=== PATIENT | female | born 1960 | race Caucasian/White ===

== ENCOUNTER 2020-11-17 07:39 | Inpatient (IN) ==
--- NOTE | 2020-11-03 10:54 | History & Physical Report ---
Date of Service November 03, 2020 date of surgery: 11/17/20 Procedure: Right Total Knee Arthroplasty Assessment & Plan (1) Arthritis of right knee: Risks and benefits of procedure discussed in detail today, patient would like to proceed with a Right total knee replacement at [facility] as scheduled. will obtain medical clearance from Dr Schmitz prior to surgery as well as obtain PATs at [facility]. Will place on ASA 81mg po bid x 1 month post op, f/u 2 weeks post op for routine post-operative care and x-ray, sooner if having any problems. will make arrangements for OPPT at [facility] in [place] at the time of discharge. At this point in time, has failed conservative measures a nd would like to proceed with surgical intervention. The risks and benefits have been discussed including, but not limited to, risk of infection, nerve injury, stiffness, loss of motion, failure to improve, etc. Reasonable outcomes and options of treatment were discussed. An explanation of appropriate alternatives to the procedure that may be advantageous were discussed and their risks and benefits, as well as the risks and benefits of not proceeding with treatment. I offered to answer any additional inquiries concerning the treatment involved. All the patient's questions were answered. The patient is agreeable, understanding of the treatment plan and alternatives, and wishes to proceed with the treatment plan. History of Present Illness Chief Complaint: Right knee pain Primary Care Provider: ALBINA PCP Nathalia is a 60 year old female who complains of Right knee pain, presents for pre-op evaluation prior to a right total knee replacement by dr Jerez at [facility]. She complains of pain, decreased range of motion and stiffness in her right knee. currently the patient states that the symptoms are moderate-severe and rated at 6/10. The pain is described as aching, sharp and throbbing. her symptoms are aggravated by ascending stairs, daily activities, first steps while awake walking. Prior NSAIDs include Diclofenac and IBU. she has been treated with previous cortisone and visco injections in the past without much relief. Allergies Allergy/AdvReac Type Severity Reaction Status Date / Time Sulfa (Sulfonamide Allergy Unknown Rash Verified 09/13/20 13:15 Antibiotics) Home Medications Medication Instructions Recorded Confirmed Type amlodipine 2.5 mg PO QAM 09/01/20 09/01/20 History calcium carbonate-vitamin D3 1 tab PO BID 09/01/20 09/01/20 History [Calcium + D] diclofenac sodium 75 mg PO BID 09/01/20 09/01/20 History lisinopril-hydrochlorothiazide 1 tab PO BID 09/01/20 09/01/20 History pantoprazole [Protonix] 40 mg PO QAM 09/01/20 09/01/20 History Past Med/Surg History Medical History DJD (degenerative joint disease) of knee Hypertension NSAID long-term use Taking PPI preventatively d/t NSAID use Obesity Surgical History H/O foot surgery Right foot reconstruction H/O vaginal hysterectomy History of bladder surgery Bladder tack History of section x1 History of colonoscopy History of total left knee replacement Family History Father Family history of reaction to anesthesia shaking after some surgeries, not all of his surgeries. will happen with MAC and general anesthesia both. unsure as to why. 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: No Beliefs That Will Affect Care: None Current Living Situation: Spouse and Family Current Living Situation Comment: & son Feels Safe at Home: Yes Assistive Devices: Glasses Review of Systems Review of Systems: All systems reviewed & are unremarkable except as noted in HPI & below Constitutional: no fever, no chills and no sweats Respiratory: no cough and no dyspnea Cardiovascular: no chest pain, no dyspnea and no orthopnea Gastrointestinal: no abdominal pain, no nausea and no vomiting Musculoskeletal: as per Subjective / HPI Physical Exam Physical Exam: HT: 6'1" WT: 175lb BP: 126/72 Constitutional: WD/WN, vitals as above no acute distress Respiratory: normal respiratory effort, lungs clear to auscultation no respiratory distress, no labored breathing and does not use accessory muscles Cardiovascular: RRR, no murmur, no edema Gastrointestinal (Abdomen): normal bowel sounds, soft, nontender, no hepatosplenomegaly Musculoskeletal: Knee: + knee abnormal to inspection (RIGHT KNEE- ), + effusion (+1 effusion), + limited ROM of knee (ROM 0/3/110), + knee ROM with crepitation, + joint line tenderness (medial joint line) and + Caren's sign positive; no deformity, no skin erythema, no ecchymosis, no valgus laxity, no varus laxity, anterior drawer test negative, Naseem's sign negative and pivot shift test negative Results & Data Results & Data ([facility] [place]) Diagnostic Findings Right Knee X-ray 02-23-20 showing advanced degenerative changes to the right knee, narrowing of the medial compartment and patello-femoral joint with patellar spurring noted, findings showing joint space narrowing of the medial compartment and patello-femoral joint, osteophyte formation and subchondral sclerosis noted. overall varus alignment. no acute bony pathology noted.
--- NOTE | 2020-11-10 15:24 | Anesthesiology Consultation ---
Date of Service November 10, 2020 Assessment & Plan (1) Encounter for pre-operative examination: - COVID screening: Per PAT medical records assistant on 11/09: Travel screen negative, no known COVID-19 positive contacts or current COVID-19 related symptoms. Surgeon arranging preop COVID testing. Awaiting results. - Check BSG AM DOS Chart Review Chart Review: Acceptable Risk for Surgery and Patient NOT seen in Pre Admission Testing History Surgery Operation Date: 11/17/20 12:35 Proposed Procedures p Right Total Knee Arthroplasty - Scott Jerez DO Height/Weight Height: 5 ft 1 in Weight: 82.1 kg Allergies Allergy/AdvReac Type Severity Reaction Status Date / Time Sulfa (Sulfonamide Allergy Unknown Rash Verified 11/09/20 15:44 Antibiotics) Medications Home Medications Medication Instructions Recorded Confirmed Last Taken amlodipine 2.5 mg tablet 2.5 mg PO QAM 09/01/20 11/09/20 Unknown calcium carbonate 600 mg (1,500 1 tab PO BID 09/01/20 11/09/20 Unknown mg)-vitamin D3 200 unit tablet diclofenac sodium 75 mg 75 mg PO BID 09/01/20 11/09/20 Unknown tablet,delayed release lisinopril 20 1 tab PO BID 09/01/20 11/09/20 Unknown mg-hydrochlorothiazide 12.5 mg tablet pantoprazole 40 mg tablet,delayed 40 mg PO QAM 09/01/20 11/09/20 Unknown release (Protonix) ibuprofen 200 mg tablet 800 mg PO Q6H PRN 11/09/20 11/09/20 Unknown lorazepam 1 mg tablet (Ativan) 0.5 - 1 mg PO DAILY PRN 11/09/20 11/09/20 Unknown potassium chloride 20 mEq 20 meq PO QAM 11/09/20 11/09/20 Unknown tablet,extended release semaglutide (Ozempic) 0.5 mg SUBCUT WK 11/09/20 11/09/20 Unknown Past Medical History Medical History Anxiety Cardiac murmur "As child" > no murmur noted at PAT evaluation 09/13/20 Diabetes mellitus, type 2 DJD (degenerative joint disease) of knee Hypertension NSAID long-term use Taking PPI preventatively d/t NSAID use Obesity Past Family History Family History Father Family history of reaction to anesthesia shaking after some surgeries, not all of his surgeries. will happen with MAC and general anesthesia both. unsure as to why. Brother Family history of diabetes mellitus Brother Family history of diabetes mellitus Brother Family history of diabetes mellitus Mother Family history of diabetes mellitus Past Surgical History Surgical History H/O foot surgery Right foot reconstruction H/O vaginal hysterectomy History of bladder surgery Bladder tack History of section x1 History of colonoscopy History of total left knee replacement Social History Smoking Status: Never smoker Do You Dip or Chew Tobacco: No Hx Alcohol Use: No Hx Substance Use: No substance use type: does not use Lab Results Anesthesia Preop Results Results Anesthesia Widget: WBC 5.26 K/uL (4.8-10.8) 10/28/20 Hgb 14.4 g/dL (12.0-16.0) 10/28/20 Hct 43.4 % (37-47) 10/28/20 Plt 256 K/uL (130-400) 10/28/20 Na 140 mmol/L (136-145) 11/02/20 K 3.8 mmol/L (3.5-5.1) 11/02/20 Cl 106 mmol/L (98-107) 11/02/20 CO2 26 mmol/L (21-32) 11/02/20 BUN 35 mg/dl (7-18) H 11/02/20 Creat 0.96 mg/dl (0.6-1.2) 11/02/20 Glucose Level 115 mg/dl (70-99) H 11/02/20 PT 10.3 Seconds (9.0-12.0) 10/28/20 PTT 21.5 Seconds (21.0-31.0) 10/28/20 INR 1.0 (0.9-1.1) 10/28/20 HA1c 7.8 % (4.5-5.6) H 10/28/20 Urine Color Yellow 10/28/20 Urine Appearance Clear (Clear) 10/28/20 Urine pH 6.0 (4.5-7.5) 10/28/20 Urine Specific Warren 1.020 (1.000-1.030) 10/28/20 Urine Protein Negative (Negative) 10/28/20 Urine Glucose (UA) Negative (Negative) 10/28/20 Urine Ketones 1+ (Negative) H 10/28/20 Urine Blood Negative (Negative) 10/28/20 Urine Nitrite Negative (Negative) 10/28/20 Urine Bilirubin Negative (Negative) 10/28/20 Urine Urobilinogen Negative (Negative) 10/28/20 Urine Leukocyte Esterase Negative (Negative) 10/28/20 Blood Type A Positive 09/13/20 Antibody Screen NEGATIVE 09/13/20 Lab Comments: A1C improved from 09/13/20 labs- at that time A1C was 8.9% and new diabetes diagnosis > since started on Ozempic weekly injections with improvement to A1C at 7.8% on 10/28/20 labs* Testing Electrocardiogram Date: 10/28/20 SB with sinus arrhythmia at 57bpm. Otherwise normal ECG. Chest X-Ray Date: 09/13/20 Findings: + NAD
[~2020-11-17 07:39] MED LIST: ACETAMINOPHEN 500 MG TAB PO SCH; BUPIVACAINE 0.25% 30 ML VIAL ONE; BUPIVACAINE 0.5 % 5 MG/1 ML PF 10ML VIAL ONE; DEXAMETHASONE SOD INJ 4 MG/ML VIAL ONE; EPINEPHrine INJ 1 MG/ML AMP ONE; FAMOTIDINE 20 MG TAB PO SCH; GABAPENTIN 600 MG DOSE PO SCH; LR 500ML BOLUS, THEN 15ML/HR IV SCH; ROPIVACAINE 0.5% HCL/PF 150 MG, BUPIVACAINE 0.75% MPF 20 ML, EPINEPHrine 30MG/30ML (OR ... INSTIL SCH; Scopolamine 1 MG TDSY TD SCH; TRANEXAMIC ACID 1,000 MG **IV Intra-op IV SCH; ceFAZolin 2000MG 2,000 MG/15 ML SYR IV SCH; dexAMETHasone 4 MG TAB PO SCH
--- NOTE | 2020-11-17 08:33 | History & Physical Bridge Note ---
Date of Service November 17, 2020 History & Physical Bridge Note I have examined the patient, reviewed the History & Physical and in the interval since the performance of the History & Physical I have noted the following changes of clinical significance: no changes noted
[2020-11-17] MEDS ORDERED: fentaNYL citrate 100 MCG/2 ML VIAL ONE (08:58)
[2020-11-17] MEDS ORDERED: PROPOFOL IV EMULSION 10 MG/ML 20 ML VIAL IV ONE ×2 (08:58→11:08)
[2020-11-17] MEDS ORDERED: ePHEDrine sulfate 50 MG/ML SYR ONE (08:58)
[2020-11-17] MEDS ORDERED: LIDOCAINE 2% 2 ML VIAL/AMP(20MG/ML) INFIL ONE (08:58)
[2020-11-17] MEDS ORDERED: PHENYLEPHRINE 100MCG/ML 5ML SYR ONE (08:58)
[2020-11-17] MEDS ORDERED: MIDAZOLAM HCL 1 MG/ML 2ML VIAL ONE (08:58)
[2020-11-17] MEDS ORDERED: ePHEDrine sulfate 50 MG/ML AMP IV PRN (10:18)
[2020-11-17] MEDS ORDERED: ATROPINE SULFATE 0.1 MG/ML 10ML SYR IV PRN (10:18)
[2020-11-17] MEDS ORDERED: ONDANSETRON INJ 2 MG/ML 2 ML VIAL IV PRN ×2 (10:18→14:31)
[2020-11-17] MEDS ORDERED: fentaNYL citrate 100 MCG/2 ML VIAL IV PRN (10:18)
[2020-11-17] MEDS ORDERED: ORTHO JOINT ANESTHETIC ONE (10:25)
[2020-11-17] MEDS ORDERED: TRANEXAMIC ACID / 0.7% NACL 1000MG/100ML BAG IV ONE (10:54)
--- NOTE | 2020-11-17 11:52 | Operative Report ---
Post Operative Report Pre & Post Diagnosis Operation Date: 11/17/20 10:35 Pre-Op Diagnosis: Right Knee Arthritis Post-Op Diagnosis: Right Knee Arthritis I identified the patient and participated in the time-out.: Yes Procedure Operation Date: 11/17/20 10:35 Actual Procedures p Right Total Knee Arthroplasty(Right) utilizing [employer] journey 2 patient matched total knee arthroplasty for more femur to tibia 15 polytwenty 9 oval patella- Scott Jerez DO Surgeon Scott Jerez DO General Accounting Clerk Niranjan MATT Estimated Blood Loss 5 Findings Consistent with Post-Op Diagnosis Patient presents with severe end-stage DJD right knee [id number] varus alignment subchondral sclerosis marginal osteophytes moderate to large effusion Specimens Bone and cartilage Drains Medium bore Hemovac Anesthesia Type MAC Spinal Regional Complications none Disposition Accompanied Patient To Recovery: Yes Disposition: Recovery Room Indications Patient resents with severe end-stage DJD failed attempted conservative management with physical therapy anti-inflammatories relative rest activity modification corticosteroid injection viscosupplementation above intraoperative findings were noted Description of Procedure After proper prepping and draping of the Right lower extremity anterior midline incision was made over the region of the extensor extensor mechanism after meticulous hemostasis was obtained and maintained in subcutaneous tissues a medial parapatellar incision was made The patella was subluxed lateralward the medial lateral gutter were cleaned from any hypertrophic synovitis and scar tissue of the distal femoral block was placed and the distal femoral osteotomy cut was made subsequently the chamfers anterior and posterior osteotomy cuts were made utilizing the 4-in-1 block the tibia was subsequently subluxed anteriorward medial and ateral meniscal remnants were excised in their entirety remnants of the anterior and posterior cruciate ligaments were excised in their entirety excellent exposure of the proximal tibia was obtained the tibial osteotomy guide was placed on the proximal tibial osteotomy cut was made once again the knee was irrigated with copious amounts of sterile saline solution the patella was subsequently everted lateralward thickened scar tissue around the patella was removed the patella was subsequently cut utilizing a freehand technique and was drilled prepared for final preparation and placement of patella socially flexion-extension gaps were checked and the equal and symmetric trials were placed to the appropriate femoral and tibial trials with poly-spacer being placed for equal flexion and extension gaps and full range of motion including extension to 0 and flexion to 140 the trial components after having been taken to recovery range of motion was subsequently removed meticulous hemostasis was obtained and maintained subsequently a knee block injection of joint cocktail including ropivacaine 0.5% 150 mg. Bupivacaine 0.5% epinephrine 1-200,030 mL's toradol 30 mg dexamethasone 4 mg ketamine 10 mg clonidine 100 micrograms normal saline solution 30 mg was infiltrated into the soft tissues of the posterior knee medial lateral gutters and periosteal synovium special attention was paid to protect neurovascular structures at all times subsequently trial components having been removed the knee was irrigated with sterile saline solution. debris was removed the proximal tibia was subsequently prepared and was made ready for the placement of the tibial component tibial component was also cemented and tamped into position the femoral component was subsequently placed and cemented in the position the patellar component was subsequently cemented in position because hemostasis once again obtained and maintained wound having been thoroughly irrigated with debridement and debridement lavage was performed as well as a medial parapatellar incision closed with #1 Vicryl in interrupted fashion subcutaneous was closed with #2 Vicryl skin was closed with skin clips. PA-C was necessary for prepping and drapping as well as wound closure of deep fascia Sub cutaneous tissue and skin and was necessary for the case. A sterile compressive dressing was placed patient was taken to recovery in stable condition of report dictated by Solitario I attest to the content of the Intraoperative Record and any orders documented therein. Any exceptions are noted below. I attest to the content of the Intraoperative Record and any orders documented therein. Any exceptions are noted below.
--- NOTE | 2020-11-17 13:41 | XRay Report ---
XR knee RT 1 or 2V routine CLINICAL HISTORY: Postoperative evaluation. COMPARISON: None FINDINGS: Alignment of the total right knee arthroplasty is anatomic. There is no periprosthetic fra cture or unexpected radiopaque foreign body. There are drains and skin garret. IMPRESSION: Expected findings following total right knee arthroplasty. ACT 112: Negative or not required by law. Electronically signed by: Rudy Harding M.D. 11/17/2020 1:39 PM
[2020-11-17] MEDS ORDERED: HYDROmorphone INJ 0.5 MG/0.5 ML SYR IV PRN (14:31)
[2020-11-17] MEDS ORDERED: MAGNESIUM HYDROXIDE SUSP 30 ML UDC PO PRN (14:31)
[2020-11-17] MEDS ORDERED: bisacodyL 10 MG SUPP PR PRN (14:31)
[2020-11-17] MEDS ORDERED: NALOXONE HCL 0.4 MG/1 ML VIAL/CARP IV PRN (14:31)
[2020-11-17] MEDS ORDERED: LORazepam 1 MG TAB PO PRN (14:47)
[2020-11-17] MEDS ORDERED: PHARMACY GLYCEMIC MGMT CONSULT PRN (14:52)
--- NOTE | 2020-11-17 14:55 | Anesthesiology Progress Note ---
Date of Service November 17, 2020 Anesthesia Post Procedure Vital Signs Vital Signs: Temp Pulse Pulse Resp BP Pulse Ox 11/17/20 14:36 36.2 C L 77 20 106/60 95 11/17/20 13:39 36.6 C 81 18 102/61 92 11/17/20 13:30 86 15 110/57 L 97 11/17/20 13:20 80 17 110/90 95 11/17/20 13:10 36.5 C 81 20 113/61 96 11/17/20 13:00 85 17 108/55 L 94 11/17/20 12:50 80 16 102/57 L 98 11/17/20 12:40 81 15 104/56 L 100 11/17/20 12:31 36.2 C L 85 16 102/49 L 98 11/17/20 08:13 36.9 C 82 20 144/72 H 97 Transfer of Care Handoff Completed per policy Notes Mental Status: alert / awake / arousable Patient Amnestic to Procedure: Yes Nausea / Vomiting: adequately controlled Pain: adequately controlled Airway Patency, RR, SpO2: stable & adequate BP & HR: stable & adequate Hydration State: stable & adequate Neuraxial Anesthesia: was administered and sensory block is resolving Anesthetic Complications: no major complications apparent and Pt Satisfied with anesthetic care
--- NOTE | 2020-11-17 15:21 | Pharmacy Report ---
Pharmacy Glycemic Short Note 2 - Date of Service November 17, 2020 - Glycemic Short BSG Results (Last 24 hours): 11/17/20 11/17/20 08:19 12:36 POC Glucose 103 H 148 H OUTPATIENT ANTIDIABETIC REGIMEN: * Semaglutide 0.5 mg weekly on Fridays ASSESSMENT: * 60 y/o F admitted for R total knee arthroplasty. Pt with Type 2 diabetes managed at home on SQ Semaglutide taken weekly on Fridays. * Semaglutide will be held during admission but she won't be needing it until this Sunday anyway and most likely will be discharged by then in time for her next dose. * While admitted, will start patient on basal/bolus insulin for glycemic control. * Pt did receive Decadron 8 mg PO and probably also 4 mg IV in the OR today. These can potentially increase her BSGs this evening. * Ordered a single dose of NPH to be given this evening with dinner if her BSG goes above 180 mg/dl. Dose based on wt and stress of 2. Re-assess tomorrow. Pt may not need a basal insulin ongoing once steroid effects wear off since the Semaglutide SQ dose taken last Sunday should still be working for her. * Novolog parameters are based on wt and stress between 2 and 3. PLAN FOR INPATIENT GLYCEMIC CONTROL: * Hold outpatient diabetes medications * Basal insulin * NPH scale 0-15 units with dinner only if BSG greater than 180 mg/dl * Bolus insulin * NovoLog per scale ACHS or Q6hrs while NPO * Goal Range: Low 110 mg/dL - High 140 mg/dL * Correction Factor: 25 mg/dL/unit * Nutritional / Prandial insulin per carb ratio of 1 unit per 9 grams CHO consumed PLAN FOR DISCHARGE: * TBD
[2020-11-17] MEDS: ACETAMINOPHEN 500 MG TAB PO SCH ×2 (15:35→21:03)
[2020-11-17] MEDS: SODIUM CHLORIDE 0.9% 1000ML 1,000 ML IV SCH (15:36)
[2020-11-17] MEDS ORDERED: Scopolamine CHECK PATCH PLACEMENT SCH (16:00)
[2020-11-17] MEDS ORDERED: NovoLIN-N (NPH) PER UNIT CHARGE SQ SCH (16:30)
[2020-11-17] MEDS: INSULIN ASPART 100 UNITS/ML 3 ML PEN SC SCH ×2 (18:58→21:02)
[2020-11-17] MEDS: FERROUS GLUCONATE 324 MG TAB PO SCH (19:00)
[2020-11-17] MEDS: ceFAZolin 2000MG 2,000 MG/15 ML SYR IV SCH (19:00)
[2020-11-17] MEDS: LISINOPRIL/HCTZ 20/12.5MG 1 TAB TAB PO SCH (20:04)
[2020-11-17] MEDS: CALCIUM 600MG + VIT D 400 IU TAB PO SCH (20:05)
[2020-11-17] MEDS: ASPIRIN 81 MG ECTAB PO SCH (20:05)
[2020-11-17] MEDS: DOCUSATE SODIUM 100 MG CAP PO SCH (20:06)
[2020-11-17] MEDS ORDERED: SENNA 8.6 MG TAB PO SCH (21:00)
[2020-11-18] MEDS: SODIUM CHLORIDE 0.9% 1000ML 1,000 ML IV SCH (00:50)
[2020-11-18] MEDS: oxyCODONE HCL IR 5 MG TAB (IMMEDIATE RELEASE) PO PRN ×2 (01:40→11:53)
[2020-11-18] MEDS: ceFAZolin 2000MG 2,000 MG/15 ML SYR IV SCH (03:06)
[2020-11-18] MEDS: ACETAMINOPHEN 500 MG TAB PO SCH (05:08)
[2020-11-18 07:48] LABS: Hematocrit (blood only) 35.6 % (37-47); Hemoglobin 11.8 g/dL (12.0-16.0); Mean Corpuscular Hemoglobin 30.3 pg (25-34); Mean Corpuscular Hgb Conc 33.1 g/dL (32-36); Mean Corpuscular Volume 91.3 fL (80-100); Mean Platelet Volume 10.6 fL (7.4-10.4); Platelet Count 255 K/uL (130-400); RDW Coefficient of Variation 12.8 % (11.5-14.5); RDW Standard Deviation 42.7 fL (36.4-46.3); White Blood Count 12.56 K/uL (4.8-10.8)
[2020-11-18] MEDS ORDERED: CARBOHYDRATES FOR HYPOGLYCEMIA PO PRN (08:00)
[2020-11-18] MEDS ORDERED: GLUCAGON FOR INJ 1 MG VIAL IM PRN (08:00)
[2020-11-18] MEDS ORDERED: GLUCOSE 40% GEL 15 GM TUBE PO PRN (08:00)
[2020-11-18] MEDS ORDERED: DEXTROSE 50% 50 ML SYRINGE IV PRN (08:00)
[2020-11-18] MEDS ORDERED: GLUCOSE 10 TABS/TUBE PO PRN (08:00)
[2020-11-18 08:20] LABS: BUN Creatinine Ratio 25.9 (10-20); Calcium 8.5 mg/dl (8.5-10.1); Creatinine Clr Calc Pharmacy 84.2 ml/min; Est GFR (Non-African American) 92.3 ml/min; Potassium 3.5 mmol/L (3.5-5.1)
[2020-11-18] MEDS: ASPIRIN 81 MG ECTAB PO SCH (08:41)
[2020-11-18] MEDS: LISINOPRIL/HCTZ 20/12.5MG 1 TAB TAB PO SCH (08:41)
[2020-11-18] MEDS: DOCUSATE SODIUM 100 MG CAP PO SCH (08:41)
[2020-11-18] MEDS: CALCIUM 600MG + VIT D 400 IU TAB PO SCH (08:41)
[2020-11-18] MEDS: FERROUS GLUCONATE 324 MG TAB PO SCH (08:42)
[2020-11-18] MEDS ORDERED: MULTIVITAMIN TAB PO SCH (09:00)
[2020-11-18] MEDS ORDERED: POTASSIUM CHLORIDE CRTAB 20 MEQ TABCR PO SCH (09:00)
[2020-11-18] MEDS ORDERED: PANTOprazole 40 MG TAB PO SCH (09:00)
[2020-11-18] MEDS ORDERED: amLODIPine BESYLATE 5 MG TAB PO SCH (09:00)
[2020-11-18] MEDS: INSULIN ASPART 100 UNITS/ML 3 ML PEN SC SCH (09:32)
--- NOTE | 2020-11-18 10:22 | Orthopedic Progress Note ---
Date of Service November 18, 2020 Assessment & Plan (1) Arthritis of right knee: Plan: Postop day 1 status post right total knee arthroplasty PT/OT protocols. Patient progressing well. Weightbearing as tolerated. DVT prophylaxis-aspirin p.o. twice daily, Thee, YESSI chawla. Pain management as written. Mild leukocytosis-patient is asymptomatic and afebrile. Likely secondary to surgical stress and or preoperative steroids. DC planning-patient is planning for outpatient PT upon discharge. Plan for discharge to home today. Admission and Anticipated Discharge Date Admission Date: November 17, 2020 Subjective Postop day 1 Patient currently sitting up in bed awake and alert. She states that she had gone to her physical therapy this morning. It went well. She ambulated around the hallways twice and worked on steps. She is got some mild pain in the right knee but is controlled at this time. She denies shortness of breath, chest pain, lightheadedness. She has no other complaints. She is hoping to go home today. Physical Exam Physical Exam: Dressings are clean, dry, and intact. Calves are soft and nontender. Neurovascular intact. Toes are mobile. She has good dorsiflexion and plantarflexion of the right foot. Hemovac drainage was 50 mL from the previous shift. Results & Data ([facility]) Vital Signs (Past 12 Hours) Vital Signs Temp Pulse Resp BP Pulse Ox 11/18/20 07:00 36.6 C 54 L 16 108/69 95 11/18/20 02:28 36.6 C 57 L 16 109/68 93 11/17/20 22:37 36.5 C 61 16 125/74 93 Laboratory Results Laboratory Results WBC 12.56 K/uL (4.8-10.8) H 11/18/20 07:22 RBC 3.90 M/uL (4.2-5.4) L 11/18/20 07:22 Hgb 11.8 g/dL (12.0-16.0) L 11/18/20 07: Hct 35.6 % (37-47) L 11/18/20 07:22 MCV 91.3 fL (80-100) 11/18/20 07: MCH 30.3 pg (25-34) 11/18/20 07: MCHC 33.1 g/dL (32-36) 11/18/20 07:22 RDW Std Deviation 42.7 fL (36.4-46.3) 11/18/20 07:22 RDW Coeff of Sukhdeep 12.8 % (11.5-14.5) 11/18/20 07:22 Plt Count 255 K/uL (130-400) 11/18/20 07:22 MPV 10.6 fL (7.4-10.4) H 11/18/20 07:22 Sodium 138 mmol/L (136-145) 11/18/20 07:22 Potassium 3.5 mmol/L (3.5-5.1) 11/18/20 07:22 Chloride 107 mmol/L (98-107) 11/18/20 07: Carbon Dioxide 25 mmol/L (21-32) 11/18/20 07:22 Anion Gap 6.0 (3-11) 11/18/20 07:22 BUN 19 mg/dl (7-18) H 11/18/20 07:22 Creatinine 0.72 mg/dl (0.6-1.2) 11/18/20 07:22 Est Cr Clr Drug Dosing 84.2 ml/min 11/18/20 07:22 Est GFR ( Amer) 107.0 ml/min 11/18/20 07:22 Est GFR (Non-Af Amer) 92.3 ml/min 11/18/20 07:22 BUN/Creatinine Ratio 25.9 (10-20) H 11/18/20 07:22 Glucose 132 mg/dl (70-99) H 11/18/20 07:22 POC Glucose 135 mg/dl (70-99) H 11/18/20 08:21 Calcium 8.5 mg/dl (8.5-10.1) 11/18/20 07:22 COVID-19 Eval Order Covid19 IDNow [facility] 11/17/20 08:01 SARS-CoV-2, RNA, NAAT NEGATIVE (NEGATIVE) 11/17/20 08:01 Blood Type A Positive 11/17/20 08:38 Antibody Screen NEGATIVE 11/17/20 08:38 Impressions Knee X-Ray 11/17/20 12:39 XR knee RT 1 or 2V routine CLINICAL HISTORY: Postoperative evaluation. COMPARISON: None FINDINGS: Alignment of the total right knee arthroplasty is anatomic. There is no periprosthetic fracture or unexpected radiopaque foreign body. There are drains and skin garret. IMPRESSION: Expected findings following total right knee arthroplasty. ACT 112: Negative or not required by law. Electronically signed by: Rudy Harding M.D. 11/17/2020 1:39 PM
--- NOTE | 2020-11-21 09:35 | Discharge Summary ---
Date of Service November 21, 2020 Admission HPI Per Admitting Provider Nathalia is a 60 year old female who complains of Right knee pain, presents for pre-op evaluation prior to a right total knee replacement by dr Jerez at [facility]. She complains of pain, decreased range of motion and stiffness in her right knee. currently the patient states that the symptoms are moderate-severe and rated at 6/10. The pain is described as aching, sharp and throbbing. her symptoms are aggravated by ascending stairs, daily activities, first steps while awake walking. Prior NSAIDs include Diclofenac and IBU. she has been treated with previous cortisone and visco injections in the past without much relief. Admission Exam Per Admitting Provider Physical Exam: HT: 6'1" WT: 175lb BP: 126/72 Constitutional: WD/WN, vitals as above no acute distress Respiratory: normal respiratory effort, lungs clear to auscultation no respiratory distress, no labored breathing and does not use accessory muscles Cardiovascular: RRR, no murmur, no edema Gastrointestinal (Abdomen): normal bowel sounds, soft, nontender, no hepatosplenomegaly Musculoskeletal: Knee: + knee abnormal to inspection (RIGHT KNEE- ), + effusion (+1 effusion), + limited ROM of knee (ROM 0/3/110), + knee ROM with crepitation, + joint line tenderness (medial joint line) and + Caren's sign positive; no deformity, no skin erythema, no ecchymosis, no valgus laxity, no varus laxity, anterior drawer test negative, Naseem's sign negative and pivot shift test negative Principal Diagnosis Right Knee Osteoarthritis Discharge Data Allergies Allergy/AdvReac Type Severity Reaction Status Date / Time Sulfa (Sulfonamide Allergy Unknown Rash Verified 11/17/20 08:07 Antibiotics) Procedures Performed Operation Date: 11/17/20 10:35 Actual Procedures p Right Total Knee Arthroplasty(Right) - Scott Jerez DO Ordered Studies 11/17/20 05:00 US - OR guided needle placemen Routine Hospital Course (1) Arthritis of right knee: Date of Service November 18, 2020 Assessment & Plan (1) Arthritis of right knee: Plan: Postop day 1 status post right total knee arthroplasty PT/OT protocols. Patient progressing well. Weightbearing as tolerated. DVT prophylaxis-aspirin p.o. twice daily, SCDs, YESSI hose. Pain management as written. Mild leukocytosis-patient is asymptomatic and afebrile. Likely secondary to surgical stress and or preoperative steroids. DC planning-patient is planning for outpatient PT upon discharge. Plan for discharge to home today. Admission and Anticipated Discharge Date Admission Date: November 17, 2020 Subjective Postop day 1 Patient currently sitting up in bed awake and alert. She states that she had gone to her physical therapy this morning. It went well. She ambulated around the hallways twice and worked on steps. She is got some mild pain in the right knee but is controlled at this time. She denies shortness of breath, chest pain, lightheadedness. She has no other complaints. She is hoping to go home today. Physical Exam Physical Exam: Dressings are clean, dry, and intact. Calves are soft and nontender. Neurovascular intact. Toes are mobile. She has good dorsiflexion and plantarflexion of the right foot. Hemovac drainage was 50 mL from the previous shift. Results & Data ([facility]) Vital Signs (Past 12 Hours) Vital Signs Temp Pulse Resp BP Pulse Ox 11/18/20 07:00 36.6 C 54 L 16 108/69 95 11/18/20 02:28 36.6 C 57 L 16 109/68 93 11/17/20 22:37 36.5 C 61 16 125/74 93 Laboratory Results Laboratory Results WBC 12.56 K/uL (4.8-10.8) H 11/18/20 07: RBC 3.90 M/uL (4.2-5.4) L 11/18/20 07: Hgb 11.8 g/dL (12.0-16.0) L 11/18/20 07: Hct 35.6 % (37-47) L 11/18/20 07: MCV 91.3 fL (80-100) 11/18/20 07: MCH 30.3 pg (25-34) 11/18/20: MCHC 33.1 g/dL (32-36) 11/18/20 07: RDW Std Deviation 42.7 fL (36.4-46.3) 11/18/20 07: RDW Coeff of Sukhdeep 12.8 % (11.5-14.5) 11/18/20 07:22 Plt Count 255 K/uL (130-400) 11/18/20 07:22 MPV 10.6 fL (7.4-10.4) H 11/18/20 07:22 Sodium 138 mmol/L (136-145) 11/18/20 07:22 Potassium 3.5 mmol/L (3.5-5.1) 11/18/20 07:22 Chloride 107 mmol/L (98-107) 11/18/20 07:22 Carbon Dioxide 25 mmol/L (21-32) 11/18/20 07:22 Anion Gap 6.0 (3-11) 11/18/20 07:22 BUN 19 mg/dl (7-18) H 11/18/20 07:22 Creatinine 0.72 mg/dl (0.6-1.2) 11/18/20 07:22 Total Time Total Time Spent Total Time Spent (In Minutes): 5 Discharge Plan Discharge Items Patient Disposition: Home - Self-Care Reason For Visit: TOTAL RIGHT KNEE ARTHROPLASTY Discharge Diagnosis: Right Knee Osteoarthritis Activity: Per Instructions section Weightbearing: Right weightbearing Weightbearing Comment: as tolerated with walker Non-emergency contact: Surgeon Call non-emergency contact if: you have any medication questions, your pain is not controlled, your temperature is above 101.5, your wound has increased redness and your wound has increased drainage Follow-up/Referrals: Hortensia Schmitz DO [Primary Care Provider] - Diet: Carb Consistent or DM2 Addtl Attending Provider Instructions: ACTIVITY RECOMMENDATIONS: SELF CARE INSTRUCTIONS AFTER TOTAL KNEE REPLACEMENT A. You may need to continue a physical therapy program after discharge from the hospital. There are several options available to you. Your doctor will assist you in selecting the best one for you. 1. An out-patient facility 2 to 3 times a week for therapy or home therapy. 2. Continue working on all exercises taught to you in the hospital. Your goals should be to increase bending of your knee to 90 degrees and beyond and to fully straighten your knee. B. You may progress at your own pace from walking with a walker or crutches to a cane; then to no assistive devices. C. Make walking a part of your daily routine. Be up as much as comfortable with rest periods throughout the day. Rest with leg elevation is very important. Use the ice wrap frequently for the first 3-4 weeks. D. There are no restrictions on activities. You may ride in a car, shop, participate in manufacturing baker and all social activities. E. Wear the long elastic stockings (YESSI hose) 20 hours a day for 2 weeks after surgery. They can be removed several times a day for laundering and for a bath. F. You may shower, no tub baths until cleared by your doctor. SPECIAL CARE INSTRUCTIONS: VERY IMPORTANT TO READ AND REVIEW A. There are a few signs you need to watch for after you are home. Call [facility] if you notice any of the followin. Increased severe knee pain. Some pain is expected especially when you exercise. 2. Increased swelling in your leg or knee; pain or swelling of the calf muscle in either lower leg. 3. Any fluid drainage from the incision. 4. Shortness of breath or chest pain. B. Please call [facility] at if you have any concerns or questions about your operation or recovery. The doctor or his nurse will return your call promptly. C. You must take antibiotics before dental work, bladder, bowel or other surgery. Your doctor will provide you with a permanent care to carry describing this precaution. IMPORTANT: * REMEMBER TO TAKE ASPIRIN, 81 MG, TWICE DAILY FOR 4 WEEKS UNLESS OTHERWISE DIRECTED. THIS IS YOUR BLOOD THINNER. * HIGH RISK PATIENTS MAY BE PRESCRIBED A STRONGER BLOOD THINNER. THIS WILL BE PROVIDED AT DISCHARGE. * CALL IF INCREASED PAIN, REDNESS, DRAINAGE OR FEVER GREATER THAT 101. * WEAR YESSI HOSE 20 HOURS PER DAY FOR 2 WEEKS. * ARELI Dressing - This is a large suction dressing covering your incision. This will help pull any excess drainage from the wound and allow your incision to heal properly. You may shower with this if you can keep the unit outside of the shower. If any bleeding or leakage is noted please call your doctor's office. This will remain on your incision for 7 days and then should be removed. This can be done yourself or by the home nursing staff if applicable. The entire unit is disposable once removed. Once removed, keep incision clean and dry. If redness or drainage is noted, please call your surgeon. . FOLLOW UP VISIT: If appointment is not already scheduled: Please call [facility] to make a follow-up appointment for 2 weeks after your surgery at . Stand-Alone Forms: My [facility] [employer], Opioid Pain Management, Smoking Cessation Medications and DC Order Prescriptions: New aspirin 81 mg Tablet,Delayed Release (Dr/Ec) 81 mg PO BID 30 Days Qty: 60 RF: 0 acetaminophen [Tylenol Extra Strength] 500 mg Tablet 1,000 mg PO Q8 14 Days Qty: 84 RF: 0 polyethylene glycol 3350 [Miralax] 17 gram powder in packet 17 g PO DAILY PRN (Reason: constipation) Qty: 5 RF: 0 cefadroxil 500 mg capsule 500 mg PO BID Qty: 28 RF: 1 oxycodone 5 mg Tablet 5 mg PO Q4H MDD 6 PRN (Reason: pain) Qty: 30 RF: 0 Continued lisinopril-hydrochlorothiazide 20-12.5 mg Tablet 1 tab PO BID RF: 0 calcium carbonate-vitamin D3 600 mg(1,500mg) -200 unit Tablet 1 tab PO BID RF: 0 pantoprazole [Protonix] 40 mg Tablet,Delayed Release (Dr/Ec) 40 mg PO QAM RF: 0 amlodipine 2.5 mg Tablet 2.5 mg PO QAM RF: 0 potassium chloride 20 mEq Tablet Extended Release 20 meq PO QAM RF: 0 Ozempic 0.25 mg or 0.5 mg(2 mg/1.5 mL) Pen Injector 0.5 mg SUBCUT WK RF: 0 lorazepam [Ativan] 1 mg Tablet 0.5 - 1 mg PO DAILY PRN (Reason: Anxiety) RF: 0 Discontinued diclofenac sodium 75 mg Tablet,Delayed Release (Dr/Ec) 75 mg PO BID RF: 0 ibuprofen 200 mg Tablet 800 mg PO Q6H PRN (Reason: Pain) RF: 0 Discharge Orders: Discharge Order (Routine); Ordered 11/18/20 Ordered By: Niranjan Benton/Other Patient Handouts: DVT Post Op Prevention Admission Data Admit Date/Time: 11/17/20 12:39 Attending Provider: Scott Jerez Admit Provider: Scott Jerez Primary Care Provider: Hortensia Schmitz Other Interventions: Discharge Summary Assessment (RN) Last Done: 11/18/20 10:48
== END 2020-11-18 13:06 | disposition home or self-care (01) | DRG 470 ==
LOC: ASU 07:39 → PACUINP 07:39 → OBSVTOIN 12:39 → 3N 12:40